=== PATIENT | male | born 1930 | race Caucasian/White ===

== ENCOUNTER → 2019-02-28 | Outpatient (CLI) | payer MEDICARE ==
[~2019-02-28] MED LIST: ADV250INH; BENA20TA8 PO; BENA25CA4 PO; KP F1200 PO; MULTCAP PO; TURM500C PO
--- NOTE | 2019-02-28 09:58 | REP ---
Chest x-ray: Three views. History: Anemia. No comparison study. Findings: The lungs are slightly hyperinflated but free of infiltrate. Heart is not enlarged. The aorta is tortuous. There are mild degenerative changes in the thoracic spine. The pulmonary vasculature is not increased. No acute bony abnormality is seen. Impression: Mild hyperinflation. Otherwise no acute disease. Electronically Signed by Alonso Garcia MD 02/28/2019 12:30 P
== END ==
LOC: M RAD 09:14
PROVIDERS: ATTEND Internal Medicine Hematology & Oncology
DX: D64.9 Anemia, unspecified (principal)

== ENCOUNTER → 2020-01-21 | Outpatient (CLI) | payer MEDICARE ==
[~2020-01-21] MED LIST changes: +ATIV1TAB7 PO; +IRON65TA2 PO
[2020-01-21 14:04] LABS: BASO # 0.1 10^3/uL (0.0-0.2); EOS # 0.2 10^3/uL (0.0-0.5); EOS % 1.7 % (0.0-3.0); HEMATOCRIT 34.7 % (42.0-52.0); HEMOGLOBIN 9.6 g/dl (13.5-17.5); LYMPH # 2.3 10^3/uL (1.5-5.0); LYMPH % 21.1 % (24.0-44.0); MEAN CORPUSCULAR HEMOGLOBIN 21.7 pg (27.0-33.0); MEAN CORPUSCULAR HGB CONC 27.7 g/dl (32.0-36.5); MEAN CORPUSCULAR VOLUME 78.3 fl (80.0-96.0); MONO # 1.5 10^3/uL (0.0-0.8); MONO % 13.6 % (0.0-5.0); NEUTROPHILS # 6.8 10^3/uL (1.5-8.5); NEUTROPHILS % 62.2 % (36.0-66.0); PLATELET COUNT, AUTOMATED 646 10^3/uL (150-450); RED BLOOD COUNT 4.43 10^6/uL (4.30-6.10); WHITE BLOOD COUNT 10.9 10^3/uL (4.0-10.0)
== END ==
LOC: M LAB 13:35
PROVIDERS: ATTEND Internal Medicine Medical Oncology
DX: D64.9 Anemia, unspecified (principal)

== ENCOUNTER → 2020-01-28 | Outpatient (CLI) | payer MEDICARE ==
[2020-01-28 13:09] LABS: BASO # 0.1 10^3/uL (0.0-0.2); BASO % 0.7 % (0.0-1.0); EOS # 0.2 10^3/uL (0.0-0.5); EOS % 1.6 % (0.0-3.0); HEMOGLOBIN 9.1 g/dl (13.5-17.5); MEAN CORPUSCULAR HEMOGLOBIN 21.6 pg (27.0-33.0); MEAN CORPUSCULAR HGB CONC 27.6 g/dl (32.0-36.5); MEAN CORPUSCULAR VOLUME 78.2 fl (80.0-96.0); MONO # 1.5 10^3/uL (0.0-0.8); MONO % 13.8 % (0.0-5.0); NEUTROPHILS # 6.9 10^3/uL (1.5-8.5); NEUTROPHILS % 64.5 % (36.0-66.0); PLATELET COUNT, AUTOMATED 578 10^3/uL (150-450); RED BLOOD COUNT 4.22 10^6/uL (4.30-6.10); WHITE BLOOD COUNT 10.7 10^3/uL (4.0-10.0)
[2020-01-28 13:29] LABS: PERCENT SATURATION 6.2 % (19.7-50.0)
== END ==
LOC: M LAB 12:36
PROVIDERS: ATTEND Internal Medicine Medical Oncology
DX: D64.9 Anemia, unspecified (principal)

== ENCOUNTER → 2020-02-04 | Outpatient (CLI) | payer MEDICARE ==
[2020-02-04 13:54] LABS: BASO # 0.1 10^3/uL (0.0-0.2); BASO % 0.7 % (0.0-1.0); EOS # 0.2 10^3/uL (0.0-0.5); EOS % 1.8 % (0.0-3.0); HEMATOCRIT 34.2 % (42.0-52.0); HEMOGLOBIN 9.3 g/dl (13.5-17.5); LYMPH # 1.9 10^3/uL (1.5-5.0); LYMPH % 18.9 % (24.0-44.0); MEAN CORPUSCULAR HEMOGLOBIN 21.4 pg (27.0-33.0); MEAN CORPUSCULAR HGB CONC 27.2 g/dl (32.0-36.5); MEAN CORPUSCULAR VOLUME 78.8 fl (80.0-96.0); MONO # 1.6 10^3/uL (0.0-0.8); MONO % 15.9 % (0.0-5.0); NEUTROPHILS # 6.1 10^3/uL (1.5-8.5); NEUTROPHILS % 62.2 % (36.0-66.0); PLATELET COUNT, AUTOMATED 590 10^3/uL (150-450); RED BLOOD COUNT 4.34 10^6/uL (4.30-6.10); WHITE BLOOD COUNT 9.8 10^3/uL (4.0-10.0)
[2020-02-04 14:38] LABS: PERCENT SATURATION 15.9 % (19.7-50.0)
== END ==
LOC: M LAB 13:25
PROVIDERS: ATTEND Internal Medicine Medical Oncology
DX: D64.9 Anemia, unspecified (principal)

== ENCOUNTER → 2020-02-11 | Outpatient (CLI) | payer MEDICARE | LOC: M LAB 13:52 | PROVIDERS: ATTEND Internal Medicine Medical Oncology | DX: D46.4 Refractory anemia, unspecified (principal) ==

== ENCOUNTER → 2020-02-18 | Outpatient (CLI) | payer MEDICARE ==
[2020-02-18 14:27] LABS: BASO # 0.1 10^3/uL (0.0-0.2); BASO % 0.8 % (0.0-1.0); EOS # 0.1 10^3/uL (0.0-0.5); EOS % 1.3 % (0.0-3.0); HEMATOCRIT 40.9 % (42.0-52.0); HEMOGLOBIN 11.1 g/dl (13.5-17.5); LYMPH # 2.1 10^3/uL (1.5-5.0); LYMPH % 22.6 % (24.0-44.0); MEAN CORPUSCULAR HEMOGLOBIN 22.5 pg (27.0-33.0); MEAN CORPUSCULAR HGB CONC 27.1 g/dl (32.0-36.5); MEAN CORPUSCULAR VOLUME 82.8 fl (80.0-96.0); MONO # 1.6 10^3/uL (0.0-0.8); MONO % 17.8 % (0.0-5.0); NEUTROPHILS # 5.3 10^3/uL (1.5-8.5); NEUTROPHILS % 57.2 % (36.0-66.0); PLATELET COUNT, AUTOMATED 539 10^3/uL (150-450); RED BLOOD COUNT 4.94 10^6/uL (4.30-6.10); WHITE BLOOD COUNT 9.2 10^3/uL (4.0-10.0)
== END ==
LOC: M LAB 13:39
PROVIDERS: ATTEND Internal Medicine Medical Oncology
DX: D46.4 Refractory anemia, unspecified (principal)

== ENCOUNTER → 2020-02-26 | Outpatient (CLI) | payer MEDICARE ==
[2020-02-26 14:50] LABS: BASO # 0.1 10^3/uL (0.0-0.2); BASO % 0.8 % (0.0-1.0); EOS # 0.2 10^3/uL (0.0-0.5); EOS % 1.7 % (0.0-3.0); HEMATOCRIT 40.5 % (42.0-52.0); HEMOGLOBIN 11.1 g/dl (13.5-17.5); LYMPH # 1.9 10^3/uL (1.5-5.0); LYMPH % 19.8 % (24.0-44.0); MEAN CORPUSCULAR HEMOGLOBIN 22.3 pg (27.0-33.0); MEAN CORPUSCULAR HGB CONC 27.4 g/dl (32.0-36.5); MEAN CORPUSCULAR VOLUME 81.3 fl (80.0-96.0); MONO # 1.7 10^3/uL (0.0-0.8); MONO % 17.3 % (0.0-5.0); NEUTROPHILS # 5.7 10^3/uL (1.5-8.5); NEUTROPHILS % 59.9 % (36.0-66.0); PLATELET COUNT, AUTOMATED 546 10^3/uL (150-450); RED BLOOD COUNT 4.98 10^6/uL (4.30-6.10); WHITE BLOOD COUNT 9.6 10^3/uL (4.0-10.0)
== END ==
LOC: M LAB 14:01
PROVIDERS: ATTEND Internal Medicine Medical Oncology
DX: D46.4 Refractory anemia, unspecified (principal)

== ENCOUNTER → 2020-06-16 | Outpatient (CLI) | payer MEDICARE ==
[~2020-06-16] MED LIST changes: +BENA10TA PO; +LIDOCAINE 1% MDV 20ML VIAL As Ordered ONE; +MULT-40 PO
[2020-06-16 12:00] VITALS: BP 131/66
--- NOTE | 2020-07-04 08:07 | REP ---
SINGLE VIEW CHEST X-RAY HISTORY: Status post needle biopsy right lower lobe. Post-biopsy evaluation. COMPARISON: Chest x-ray 05/20/2020. FINDINGS: PA inspiration chest x-ray shows no evidence of pneumothorax. Monitoring electrodes and oxygen delivery tubing are seen. Heart is not enlarged. The aorta is somewhat tortuous. Pulmonary vasculature is not increased. Pleural angles are sharp. Heart is not enlarged. No complication is seen. MTDD
--- NOTE | 2020-07-04 08:08 | REP ---
CT-GUIDED RIGHT LOWER LOBE LUNG BIOPSY The procedure was performed under the direct supervision of Dr. Garcia. The patient has a history of multiple new pulmonary nodules seen on a previous CT scan from [facility] performed on 05/20/2020. The risks and benefits of the procedure were explained to the patient and informed consent was obtained. A nodule in the right lower lobe was localized using CT guidance. The skin was prepped and draped in a sterile fashion. 1% Lidocaine was used as a local anesthetic. Using CT guidance, a 19-20 coaxial needle biopsy system was inserted and advanced into the nodule. Four core biopsy samples were obtained and sent to the lab. The patient tolerated the procedure well and there were no immediately complications. After the appropriate amount of monitored convalescence, the patient was discharged from the department. JHONATHAN
--- NOTE | 2020-07-04 08:09 | REP ---
PA CHEST X-RAY HISTORY: Follow-up post CT guided needle biopsy complicated by [id number] hemoptysis. COMPARISON: Made with film done 10:34 am. FINDINGS: There is no evidence of pneumothorax or new infiltrate. Lungs remain well- inflated. Heart is unchanged. The aorta is somewhat tortuous. IMPRESSION: No complication seen. Stable findings. MTDD
== END ==
LOC: M IRPRO 08:09
PROVIDERS: ATTEND Internal Medicine Pulmonary Disease
DX: C78.00 Secondary malignant neoplasm of unspecified lung (principal); R91.8 Other nonspecific abnormal finding of lung field

== ENCOUNTER → 2020-07-01 | Outpatient (CLI) | payer MEDICARE ==
[~2020-07-01] MED LIST changes: -LIDOCAINE 1% MDV 20ML VIAL As Ordered ONE
--- NOTE | 2020-07-08 08:44 | REP ---
PET/CT HISTORY: Staging right renal cell carcinoma. COMPARISON: Chest CT May 20, 2020. TECHNIQUE: 70 minutes following the intravenous injection of an 8.21 millicurie dose of F18 FDG, three dimensional PET/CT imaging was acquired from the skull base to the proximal thighs. PET/CT FINDINGS: Head and neck soft tissues are unremarkable. The metastatic nodules seen in the lungs are predominantly hypermetabolic. The most avid of these is in the left upper lobe near the apex with maximum standard uptake value 12.73. The other nodules range in avidity up to maximum SUV value of 5.5. No hilar or mediastinal hypermetabolic uptake is seen. No other abnormal metabolic uptake is seen above the diaphragm. There is a heterogeneous markedly hypermetabolic mass in the right kidney posteriorly measuring 4.7 cm in anteroposterior dimension by 6.9 cm right to left on axial images. Maximum standard uptake value within this is 17.77. No evidence of regional hypermetabolic adenopathy is seen. The right renal vein appears dilated, and there is hypermetabolic material within the inferior vena cava at the level of the renal vein. Maximum standard uptake value within the vena cava is 10.72. 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 This hypermetabolic uptake in the vena cava is limited to the infrahepatic segment of the vena cava at the level of the renal vein junction. The hypermetabolic vena cava activity measures 2.9 cm in greatest craniocaudal extent. Maximum standard uptake within the vena cava thrombus is 10.72. No other abnormal hypermetabolic uptake is seen in the abdomen and pelvis. 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 There are metastatic hypermetabolic pulmonary parenchymal nodules. MTDD
== END ==
LOC: M PLARAD 11:34
PROVIDERS: ATTEND Internal Medicine Medical Oncology
DX: C64.1 Malignant neoplasm of right kidney, except renal pelvis (principal)
CPT/HCPCS: 78815; A9552

== ENCOUNTER → 2020-08-25 | Outpatient (CLI) | payer MEDICARE ==
--- NOTE | 2020-08-25 13:11 | REP ---
INDICATION: KIDNEY CA COMPARISON: 05/20/2020 TECHNIQUE: Axial noncontrast images from the thoracic inlet to the upper abdomen with coronal and sagittal reformations. This CT examination was performed using the following dose reduction techniques: Automated exposure control, adjustment of mA and/or kv according to the patient's size, and use of iterative reconstruction technique. FINDINGS: Lung chen demonstrate innumerable bilateral pulmonary metastatic lesions measuring up to approximately 2 cm. No consolidation. No effusion. No pneumothorax. Tracheobronchial tree is patent. Nonspecific mediastinal and hilar lymph nodes measure up to 9 mm. Atherosclerotic changes to the thoracic aorta and coronary arteries noted. No cardiomegaly or pericardial effusion. Musculoskeletal structures demonstrate age-related changes without acute osseous abnormality. IMPRESSION: Bilateral pulmonary metastatic lesions measuring up to 2 cm. <Electronically signed by Placido Gtz > 08/25/20 [id number]
--- NOTE | 2020-08-25 13:38 | REP ---
INDICATION: KIDNEY CA COMPARISON: None TECHNIQUE: Axial noncontrast images from the lung bases to the pubic symphysis with coronal and sagittal reformations. This CT examination was performed using the following dose reduction techniques: Automated exposure control, adjustment of mA and/or kv according to the patient's size, and use of iterative reconstruction technique. FINDINGS: Evaluation is significantly limited by lack of contrast. A complex large right renal mass is poorly identified and measures roughly 6 cm maximal diameter. Mild adjacent perinephric stranding as well as small right pararenal nodular densities suggest adenopathy and or metastasis. The left kidney appears relatively normal. Liver, spleen, pancreas, and bilateral adrenal glands appear unremarkable by noncontrast evaluation. Cholelithiasis noted. The enteric system demonstrates diverticulosis without acute diverticulitis and without evidence for obstruction or acute inflammatory process. Pelvis demonstrates normal bladder and age-appropriate prostate/seminal vesicles with prosthetic parenchymal calcifications noted. No ascites. No free air. Atherosclerotic changes to the aorta and vasculature noted. Musculoskeletal structures demonstrate age-related degenerative changes without acute osseous abnormality. IMPRESSION: 1. Large complex poorly evaluated right renal mass with adjacent small pararenal nodular densities consistent with renal cell carcinoma and suspicious for local metastasis. 2. Cholelithiasis 3. No ascites. <Electronically signed by Placido Gtz > 08/25/20 [id number]
== END ==
LOC: M RAD 11:14
PROVIDERS: ATTEND Internal Medicine Medical Oncology
DX: C64.1 Malignant neoplasm of right kidney, except renal pelvis (principal); C78.01 Secondary malignant neoplasm of right lung; C78.02 Secondary malignant neoplasm of left lung; K80.20 Calculus of gallbladder without cholecystitis without obstruction; K57.90 Diverticulosis of intestine, part unspecified, without perforation or abscess without bleeding